=== PATIENT | female | born 2000 | race Two or more races ===

== ENCOUNTER 2020-07-20 18:51 | Emergency (ER) | payer SELFPAY ==
[~2020-07-20] VITALS: Ht 162.6 cm; Wt 64.9 kg
[~2020-07-20 18:51] MED LIST: [UNRECOGNIZED DRUG - OTHER]
--- NOTE | 2020-07-20 19:41 | NUR ---
UA SENT TO LAB AT THIS TIME
--- NOTE | 2020-07-20 19:49 | NUR ---
PT REPORTS COMING INTO ED TONIGHT DUE TO BEING INSTRUCTED TO BY [facility]. PT IS 4 WEEKS , AND AT [facility] THEY WERE UNABLE TO LOCATE FETUS ON US. PT SENT HERE FOR US AND TESTING. PT REPORTS SLIGHT LOW BACK PAIN AND LEFT SIDED ABDOMINAL PAIN AT THIS TIME. RESTING ON GURNEY, NAD, BED IN LOWEST, RAILS ENGAGED, CALL LIGHT ON LAP, WCTM. WAITING FOR US READ, LABS AND UA
[2020-07-20 19:58] LABS: MICROSCOPIC INDICATED
[2020-07-20 20:09] LABS: BASOPHILS % (AUTO) 1 % (0-1); EOSINOPHILS % (AUTO) 1 % (1-7); LYMPHOCYTES % (AUTO) 36 % (22-44); MEAN CORPUSCULAR HEMOGLOBIN 32.3 pg (27.0-34.8); MEAN PLATELET VOLUME 7.7 fL (7.4-10.4); MONOCYTES % (AUTO) 9 % (2-9); NEUTROPHILS % (AUTO) 54 % (42-75); PLATELET COUNT 270 x10^3/uL (130-400); RED BLOOD COUNT 4.37 x10^6/uL (3.82-5.3); RED CELL DISTRIBUTION WIDTH 12.6 % (9.6-15.2)
[2020-07-20 20:10] LABS: MD NO
--- NOTE | 2020-07-20 20:15 | NUR ---
Note darron in EDM - 07/20/20 at 2035 by ANATOLIY Patient given discharge instructions and they have confirmed that they understand the instructions. Patient ambulatory with steady gait. NAD, DENIES ADDITIONAL QUESTIONS OR NEEDS, PROVIDED CRACKERS FOR COMFORT, NO PERSONAL BELONGINGS LEFT IN ROOM AFTER DC. Addendum: 07/20/20 at 2035 by ANATOLIY Amendment darron in EDM - 07/20/20 at 2035 by ANATOLIY INCORRECT PT
[2020-07-20 20:18] LABS: ALANINE AMINOTRANSFERASE 16 U/L (12-78); ALBUMIN 3.9 g/dL (3.4-5.0); ANION GAP 5 mmol/L (5-15); CALCIUM 8.2 mg/dL (8.5-10.1); CHLORIDE 111 mmol/L (98-107); CREATININE 0.86 mg/dL (0.55-1.02)
[2020-07-20 20:22] LABS: ALKALINE PHOSPHATASE 108 U/L (45-117); BILIRUBIN,TOTAL 0.2 mg/dL (0.2-1.0); TOTAL PROTEIN 7.2 g/dL (6.4-8.2)
--- NOTE | 2020-07-20 20:36 | NUR ---
PT RESTING ON GURNEY, NAD, LIGHTS DIMMED FOR COMFORT, BED IN LOWEST, RAILS ENGAGED, CALL LIGHT ON LAP, DENIES ADDITIONAL QUESTIONS OR NEEDS, WCTM .
[2020-07-20 21:42] VITALS: BP 104/62
--- NOTE | 2020-07-20 21:54 | NUR ---
Patient given discharge instructions and they have confirmed that they understand the instructions. Patient ambulatory with steady gait. NAD, DENIES ADDITIONAL QUESTIONS OR NEEDS, NO PERSONAL BELONGINGS LEFT IN ROOM AFER DC.
== END 2020-07-20 21:55 | disposition home or self-care (01) ==
LOC: ED 21:30
DX: O26.891 Other specified pregnancy related conditions, first trimester (principal); N83.9 Noninflammatory disorder of ovary, fallopian tube and broad ligament, unspecified; R10.2 Pelvic and perineal pain; Z3A.01 Less than 8 weeks gestation of pregnancy
CPT/HCPCS: 36415; 76801; 80053; 81001; 84702; 85025; 87086; 99284